=== PATIENT | female | born 1960 | race African-American/Black ===

== ENCOUNTER 2019-07-09 10:24 | Emergency (ER) | payer MEDICAID, OTHER ==
[~2019-07-09] VITALS: Ht 165.1 cm; Wt 105.0 kg
[2019-07-09] MEDS ORDERED: MAGNESIUM/ALUMINUM HYDROXIDE/SIMETHICONE 30ML UDC PO ONE (10:45)
[2019-07-09] MEDS ORDERED: NITROGLYCERIN 0.4MG TABLET SL SL PRN (10:45)
[2019-07-09] MEDS ORDERED: DICYCLOMINE 10 MG/5 ML ORAL SYR PO ONE (10:45)
[2019-07-09] MEDS ORDERED: ASPIRIN 81MG TABLET PO ONE (10:45)
[2019-07-09] MEDS ORDERED: VISCOUS LIDOCAINE 2% 15 ML UDC PO ONE (10:45)
[2019-07-09 11:46] VITALS: BP 122/83
== END 2019-07-09 12:00 | disposition home or self-care (01) ==
LOC: ER 10:24 → CANBEDREQ 20:49
DX: R07.89 Other chest pain (principal); I50.9 Heart failure, unspecified; Z86.73 Personal history of transient ischemic attack (TIA), and cerebral infarction without residual deficits; Z90.10 Acquired absence of unspecified breast and nipple; Z88.6 Allergy status to analgesic agent; Z85.9 Personal history of malignant neoplasm, unspecified
CPT/HCPCS: 71045; 93005; 99283